=== PATIENT | male | born 1960 | race American Indian/Alaskan Native ===

== ENCOUNTER 2016-10-26 08:08 | Emergency (ER) | payer MEDICARE ==
[2016-10-26 08:44] VITALS: BP 133/84
--- NOTE | 2016-10-26 09:55 | Emergency Department Report ---
Upper Extremity - HPI Upper Extremity: Right Wrist Occurred When: 2 Days Mechanism: Hit with Object Severity: moderate Symptoms: Yes Pain with Movement, No Deformity, No Limited Range of Movement, No Numbness, No Weakness, No Swelling, No Bruising/Ecchymosis, No Laceration or Abrasion Other History: And is a 55-year-old male presents due to right wrist pain 2 days, patient states that he was at a restaurant trying to get paper towels from a paper towel dispenser when the dispenser fell and landed on his right wrist. Patient denies any numbness or tingling <MICHELL CHAVES N - Last Filed: 10/26/16 09:51> <IKMBERLI ALCANTAR - Last Filed: 10/26/16 14:22> - HPI Chief Complaint: Extremity Injury, Upper Stated Complaint: RT WRIST PAIN Time Seen by Provider: 10/26/16 09:49 ED Review of Systems ROS: Stated complaint: RT WRIST PAIN Other details as noted in HPI Comment: All other systems reviewed and negative Constitutional: no symptoms reported. denies: chills, diaphoresis, fever, malaise, weakness Respiratory: no symptoms reported Endocrine: no symptoms reported Gastrointestinal: denies: abdominal pain, nausea, vomiting Musculoskeletal: arthralgia (right wrist pain) Skin: denies: rash, lesions Neurological: denies: headache <MICHELL CHAVES - Last Filed: 10/26/16 09:51> ROS: Stated complaint: RT WRIST PAIN Other details as noted in HPI <KIMBERLI ALCANTAR - Last Filed: 10/26/16 14:22> ED Past Medical Hx - Past Medical History Hx Psychiatric Treatment: Yes (Paranoid schizophrenia) Additional medical history: OBESITY - Surgical History Additional Surgical History: Bilateral Cataract surgery @ the age of 14 - Social History Smoking Status: Current Some Day Smoker Substance Use Type: None <MICHELL CHAVES - Last Filed: 10/26/16 09:51> <KIMBERLI ALCANTAR - Last Filed: 10/26/16 14:22> - Medications Home Medications: Home Medications Medication Instructions Recorded Confirmed Last Taken Type Ibuprofen [Motrin 800 MG tab] 800 mg PO Q8HR PRN #30 tablet 10/26/16 Unknown Rx Upper Extremity Exam - Exam General: Vital signs noted. No distress. Alert and acting appropriately. Head and Torso: No HEENT Abnormality, No Neck Tenderness, No Chest/Lungs Abnormality, No Abdominal Tenderness, No Back Tenderness Shoulder Exam: Yes Normal Range of Motion in Shoulder, No Shoulder Tenderness, No Clavicle Tenderness, No Shoulder Deformity, No AC Joint Tenderness Arm Exam: No Arm/Humerus Tenderness, No Arm Deformity Elbow: Yes Normal Range of Motion in Elbow, No Elbow Tenderness, No Elbow Deformity Forearm: No Forearm Tenderness, No Forearm Deformity, No Pain with Pronation, No Pain with Supination Wrist: Yes Wrist Tenderness (right wrist), Yes Normal ROM in Wrist, No Wrist Deformity, No Snuffbox Tenderness, No Pain with Axial Thumb Compression Hand: Yes Normal ROM in Digit(s), No Hand Tenderness, No Hand Deformity, No Digit Tenderness, No Digit(s) Deformity, No Tendon Dysfunction CMS Exam: Yes Normal Distal Pulses, Yes Normal Capillary Refill, Yes Normal Distal Sensation, No Broken Skin <MICHELL CHAVES N - Last Filed: 10/26/16 09:51> - Exam General: Vital signs noted. No distress. Alert and acting appropriately. <KIMBERLI ALCANTAR C - Last Filed: 10/26/16 14:22> ED Course Vital Signs 10/26/16 08:42 Temperature 98.6 F Pulse Rate 80 Respiratory 17 Rate Blood Pressure 133/84 O2 Sat by Pulse 100 Oximetry <MICHELL CHAVES N - Last Filed: 10/26/16 09:51> Vital Signs 10/26/16 08:42 Temperature 98.6 F Pulse Rate 80 Respiratory 17 Rate Blood Pressure 133/84 O2 Sat by Pulse 100 Oximetry <KIMBERLI ALCANTAR C - Last Filed: 10/26/16 14:22> ED Medical Decision Making - Radiology Data Radiology results: pending, image reviewed interpreted by me: Chest x-ray of the right wrist shows no acute osseous findings, he was visible osteoarthritis. - Medical Decision Making Patient was in no acute distress, patient will be given a wrist brace. Patient will be given information follow-up with site acquisition specialist, hematochezia given prescription for ibuprofen. - Differential Diagnosis wrist strain, osteoarthritis, wrist trauma <MICHELL CHAVES N - Last Filed: 10/26/16 09:51> - Radiology Data Radiology results: report reviewed (wrist xray: unremarkable (no cxr performed)) , image reviewed <KIMBERLI ALCANTAR C - Last Filed: 10/26/16 14:22> Critical care attestation.: If time is entered above; I have spent that time in minutes in the direct care of this critically ill patient, excluding procedure time. <MICHELL CHAVES N - Last Filed: 10/26/16 09:51> Critical care attestation.: If time is entered above; I have spent that time in minutes in the direct care of this critically ill patient, excluding procedure time. <KIMBERLI ALCANTAR C - Last Filed: 10/26/16 14:22> ED Disposition Is pt being admited?: No Does the pt Need Aspirin: No Time of Disposition: 09:56 <MICHELL CHAVES N - Last Filed: 10/26/16 09:51> <KIMBERLI ALCANTAR C - Last Filed: 10/26/16 14:22> Disposition: DC-01 TO HOME OR SELFCARE Condition: Good Instructions: Wrist Injury (ED), Wrist Sprain (ED) Additional Instructions: Take ibuprofen 800 mg every 8 hours as needed for wrist pain. Follow-up with provided site acquisition specialist for any complications. Prescriptions: Ibuprofen [Motrin 800 MG tab] 800 mg PO Q8HR PRN #30 tablet PRN Reason: Pain Referrals: PRIMARY CARE,MD [Primary Care Provider] - 3-5 Days
--- NOTE | 2016-10-26 11:10 | XRay Report ---
RIGHT WRIST, 4 VIEWS: History: wrist pain, injury. Routine views demonstrate the carpal bones to be well mineralized with well preserved bony mineralization and interosseous joint spaces. The carpal and adjacent articular bones have normal contours. The surrounding soft tissues are unremarkable. IMPRESSION: Unremarkable right wrist.
== END 2016-10-26 10:13 | disposition home or self-care (01) ==
LOC: ED 08:08
DX: M25.531 Pain in right wrist (principal); W31.89XA Contact with other specified machinery, initial encounter; Y93.89 Activity, other specified; Y92.511 Restaurant or cafe as the place of occurrence of the external cause; Y99.8 Other external cause status; Z88.0 Allergy status to penicillin

== ENCOUNTER 2017-11-21 08:52 | Emergency (ER) | payer MEDICARE ==
[2017-11-21 09:04] VITALS: BP 145/87
--- NOTE | 2017-11-21 09:56 | Emergency Department Report ---
Chief Complaint: Pain General Stated Complaint: KNEE PAIN AND PHYSICAL Time Seen by Provider: 11/21/17 09:44 - HPI History of Present Illness: Patient is a 57-year-old [place] male who is complaining of fingernail fungus and bilateral hands. Patient also states he said 3 months of knee pain. Patient states the knee pain is 8 out of 10 severity is present daily. His constant pain hurts more when he is moving. He denies any injury. Patient also states it's been years disease had fingernail fungus and is coming here today requesting a physical. - ROS Review of Systems: All other systems reviewed are negative - Exam Vital Signs: Vital Signs 11/21/17 09:00 Temperature 98.8 F Pulse Rate 71 Respiratory 18 Rate Blood Pressure 145/87 O2 Sat by Pulse 99 Oximetry Physical Exam: Focused physical exam the patient's right knee shows full range of motion or no redness. Does have a small effusion present. Patient's does have onychomycosis on all fingers of bilateral hands. Heart and lungs are normal. MSE screening note: Focused history and physical exam performed. Due to findings the following was ordered: ED Medical Decision Making - Medical Decision Making Patient is a nominal emergency at this time. Patient will be referred to primary care for treatment of his chronic conditions. ED Disposition for MSE Clinical Impression: Onychomycosis Disposition: MED SCREENING EXAM-LEFT Is pt being admited?: No Does the pt Need Aspirin: No Condition: Stable Referrals: [facility] [Outside] - 3-5 Days
== END 2017-11-21 10:02 | disposition left against medical advice (07) ==
LOC: ED 08:52
DX: B35.2 Tinea manuum (principal); M25.561 Pain in right knee
CPT/HCPCS: 99282

== ENCOUNTER 2018-07-25 11:17 | Emergency (ER) | payer MEDICARE ==
--- NOTE | 2018-07-25 11:31 | Emergency Department Report ---
Blank Doc - Documentation Documentation: This is a 57-year-old male that presents with mid-lower back pain s/p fall. D enies any head or neck injures or pain. This initial assessment/diagnostic orders/clinical plan/treatment(s) is/are subject to change based on patient's health status, clinical progression and re-assessment by fellow clinical providers in the ED. Further treatment and workup at subsequent clinical providers discretion. Patient/guardians urged not to elope from the ED as their condition may be serious if not clinically assessed and managed. Initial orders include: 1- Patient sent to [facility] for further evaluation and treatment 2- Xray
[2018-07-25 11:33] VITALS: BP 150/96
--- NOTE | 2018-07-25 12:46 | Emergency Department Report ---
ED Back Pain/Injury HPI - General Chief Complaint: Back Pain/Injury Stated Complaint: BACK PAIN Time Seen by Provider: 07/25/18 11:30 Source: patient Limitations: No Limitations - History of Present Illness Initial Comments: Mr. Carolina is a 57 yo male who fell off a bench yesterday onto hard pavement. The bench was at the height of a chair. The bench broke which led to his fall. Pain is lower back central. Complaint: fall -: days(s) (1) Similar Symptoms Previously: No Place: other (dentist office) Severity: moderate Quality: dull Consistency: constant Worsens With: movement Context: fall - Related Data Previous Rx's Medication Instructions Recorded Last Taken Type Ibuprofen [Motrin 800 MG tab] 800 mg PO Q8HR PRN #30 tablet 10/26/16 Unknown Rx Cyclobenzaprine [Flexeril] 10 mg PO TID PRN #20 tablet 07/25/18 Unknown Rx Ibuprofen 800 mg PO TID 4 Days #12 tablet 07/25/18 Unknown Rx Allergies Allergy/AdvReac Type Severity Reaction Status Date / Time Penicillins Allergy Shortness Verified 10/26/16 08:40 of Breath ED Review of Systems ROS: Stated complaint: BACK PAIN Other details as noted in HPI Constitutional: denies: fever, malaise Respiratory: denies: cough, shortness of breath Cardiovascular: denies: chest pain Gastrointestinal: denies: abdominal pain Musculoskeletal: back pain Neurological: denies: numbness, paresthesias ED Past Medical Hx - Past Medical History Previous Medical History?: Yes Hx Psychiatric Treatment: Yes (Paranoid schizophrenia) Additional medical history: OBESITY, Loss of vision right eye - Surgical History Past Surgical History?: Yes Additional Surgical History: Bilateral Cataract surgery @ the age of 14 - Social History Smoking Status: Never Smoker Substance Use Type: None - Medications Home Medications: Home Medications Medication Instructions Recorded Confirmed Last Taken Type Ibuprofen [Motrin 800 MG tab] 800 mg PO Q8HR PRN #30 tablet 10/26/16 Unknown Rx Cyclobenzaprine [Flexeril] 10 mg PO TID PRN #20 tablet 07/25/18 Unknown Rx Ibuprofen 800 mg PO TID 4 Days #12 tablet 07/25/18 Unknown Rx ED Physical Exam - General Limitations: No Limitations General appearance: alert, in no apparent distress - Head Head exam: Present: atraumatic, normocephalic - Eye Eye exam: Present: normal appearance - ENT ENT exam: Present: mucous membranes moist - Neck Neck exam: Present: normal inspection - Respiratory Respiratory exam: Absent: respiratory distress - Extremities Exam Extremities exam: Present: normal inspection - Back Exam Back exam: Present: normal inspection, full ROM. Absent: tenderness, CVA tenderness (R), CVA tenderness (L), muscle spasm, paraspinal tenderness, vertebral tenderness, rash noted - Neurological Exam Neurological exam: Present: alert, oriented X3 - Psychiatric Psychiatric exam: Present: normal affect, normal mood - Skin Skin exam: Present: warm, dry, intact, normal color. Absent: rash ED Course Vital Signs 07/25/18 11:31 Temperature 98 F Pulse Rate 98 H Respiratory 18 Rate Blood Pressure 150/96 O2 Sat by Pulse 98 Oximetry ED Medical Decision Making - Medical Decision Making Back contusion, back sprain after falling through a broken bench. I reviewed thoracic and lumbar spine radiographs: Degenerative changes noted without fracture or subluxation. Prescribed ibuprofen and Flexeril Critical care attestation.: If time is entered above; I have spent that time in minutes in the direct care of this critically ill patient, excluding procedure time. ED Disposition Clinical Impression: Back contusion, Back strain Disposition: - TO HOME OR SELFCARE Is pt being admited?: No Does the pt Need Aspirin: No Condition: Stable Instructions: Low Back Strain (ED) Prescriptions: Cyclobenzaprine [Flexeril] 10 mg PO TID PRN #20 tablet PRN Reason: Muscle Spasm Ibuprofen 800 mg PO TID 4 Days #12 tablet Referrals: [facility] [Other] - 3-5 Days
--- NOTE | 2018-07-25 12:52 | XRay Report ---
Thoracic spine 3 views: History: Pain status post fall. Findings: Normal height of vertebral bodies. Decrease in height of intervertebral disc spaces. Sclerotic articular surfaces a peripheral osteophyte suggestive of degenerative changes. No fracture. No paravertebral mass. Impression: Degenerative dorsal spine. No evidence of acute fracture.
--- NOTE | 2018-07-25 12:53 | XRay Report ---
Lumbar spine 3 views: Next History: Pain status post fall. Findings: Normal height of vertebral bodies and intervertebral disc be a sclerotic articular surface a peripheral osteophyte at L4-5 disc. No fracture. No soft tissue calcification. Impression: Degenerative changes lower lumbar spine. No acute fracture.
== END 2018-07-25 12:52 | disposition home or self-care (01) ==
LOC: ED 11:17
DX: S39.012A Strain of muscle, fascia and tendon of lower back, initial encounter (principal); S30.0XXA Contusion of lower back and pelvis, initial encounter; F20.0 Paranoid schizophrenia; Z88.0 Allergy status to penicillin; W17.89XA Other fall from one level to another, initial encounter; Y93.89 Activity, other specified; Y92.89 Other specified places as the place of occurrence of the external cause; Y99.8 Other external cause status
CPT/HCPCS: 72070; 72100

== ENCOUNTER 2018-11-26 10:43 | Emergency (ER) | payer MEDICARE ==
[2018-11-26] MEDS ORDERED: TORADOL IM ONE (12:23)
--- NOTE | 2018-11-26 13:21 | Emergency Department Report ---
ED General Adult HPI - General Chief complaint: Nausea/Vomiting/Diarrhea Stated complaint: RT SIDE PAIN Time Seen by Provider: 11/26/18 11:38 Source: patient Mode of arrival: Ambulatory Limitations: No Limitations - History of Present Illness Initial comments: 28-year-old -[place] male presents to the emergency room for right sided rib pain 1.5 weeks. Patient denies any recent injury. He has intermittent nausea but denies any vomiting diarrhea or painful urination. Patient reports he is taking Tylenol which he reports only helps a little. Patient reports that the pain is worse with movement better with much Tylenol. Patient does not work has not been lifting any heavy objects. He does have a past medical history schizophrenia with paranoia. Currently takes trazodone and Seroquel Risperdal. Onset/Timin -: week(s) Location: right (ribs) Severity scale (0 -10): 5 Quality: aching, sharp Consistency: intermittent Improves with: medication Worsens with: movement (movements) Associated Symptoms: nausea/vomiting - Related Data Previous Rx's Medication Instructions Recorded Last Taken Type Cyclobenzaprine [Flexeril] 10 mg PO TID PRN #20 tablet 07/25/18 Unknown Rx Ibuprofen [Ibuprofen 800] 800 mg PO TID 4 Days #12 tablet 07/25/18 Unknown Rx Ibuprofen [Motrin 800 MG tab] 800 mg PO Q8HR PRN #30 tablet 11/26/18 Unknown Rx Allergies Allergy/AdvReac Type Severity Reaction Status Date / Time Penicillins Allergy Shortness Verified 10/26/16 08:40 of Breath ED Review of Systems ROS: Stated complaint: RT SIDE PAIN Other details as noted in HPI Comment: All other systems reviewed and negative ED Past Medical Hx - Past Medical History Previous Medical History?: Yes Hx Psychiatric Treatment: Yes (Paranoid schizophrenia) Additional medical history: OBESITY, Loss of vision right eye - Surgical History Past Surgical History?: Yes Additional Surgical History: Bilateral Cataract surgery @ the age of 14 - Social History Smoking Status: Never Smoker Substance Use Type: None - Medications Home Medications: Home Medications Medication Instructions Recorded Confirmed Last Taken Type Cyclobenzaprine [Flexeril] 10 mg PO TID PRN #20 tablet 07/25/18 Unknown Rx Ibuprofen [Ibuprofen 800] 800 mg PO TID 4 Days #12 tablet 07/25/18 Unknown Rx Ibuprofen [Motrin 800 MG tab] 800 mg PO Q8HR PRN #30 tablet 11/26/18 Unknown Rx ED Physical Exam - General Limitations: No Limitations General appearance: alert, in no apparent distress - Head Head exam: Present: atraumatic, normocephalic - Eye Eye exam: Present: normal appearance - ENT ENT exam: Present: mucous membranes moist - Neck Neck exam: Present: normal inspection - Respiratory Respiratory exam: Present: normal lung sounds bilaterally, chest wall tenderness (right lateral rib cage). Absent: respiratory distress - Cardiovascular Cardiovascular Exam: Present: regular rate, normal rhythm. Absent: systolic murmur, diastolic murmur, rubs, gallop - GI/Abdominal GI/Abdominal exam: Present: soft, normal bowel sounds - Rectal Rectal exam: Present: deferred - Extremities Exam Extremities exam: Present: normal inspection - Back Exam Back exam: Present: normal inspection - Neurological Exam Neurological exam: Present: alert, oriented X3 - Psychiatric Psychiatric exam: Present: normal affect, normal mood - Skin Skin exam: Present: warm, dry, intact, normal color. Absent: rash ED Course Vital Signs 11/26/18 11/26/18 11:00 12:29 Temperature 97.9 F Pulse Rate 101 H Respiratory 18 18 Rate Blood Pressure 139/76 O2 Sat by Pulse 100 Oximetry ED Medical Decision Making - Medical Decision Making 8-year-old obese male comes in for right lateral rib pain 1.5 weeks. Patient be given a Toradol injection of 30 mg IM. Which patient reports has helped and will discharge patient home and ibuprofen 800 mg 3 times a day as needed. Patient verbalizes understanding. Critical care attestation.: If time is entered above; I have spent that time in minutes in the direct care of this critically ill patient, excluding procedure time. ED Disposition Clinical Impression: Rib pain on right side Disposition: DC-01 TO HOME OR SELFCARE Is pt being admited?: No Does the pt Need Aspirin: No Condition: Stable Instructions: Chest Pain (ED) Additional Instructions: Please take ibuprofen as needed for pain. Increase her water intake. Please take medications with food. Prescriptions: Ibuprofen [Motrin 800 MG tab] 800 mg PO Q8HR PRN #30 tablet PRN Reason: Pain Referrals: JOBY GUERRA MD [Primary Care Provider] - 3-5 Days
[2018-11-26 13:40] VITALS: BP 140/80
== END 2018-11-26 13:39 | disposition home or self-care (01) ==
LOC: ED 10:43
DX: R07.81 Pleurodynia (principal); E66.9 Obesity, unspecified; Z68.41 Body mass index [BMI] 40.0-44.9, adult; F20.0 Paranoid schizophrenia; Z79.1 Long term (current) use of non-steroidal anti-inflammatories (NSAID); Z88.0 Allergy status to penicillin; Z98.890 Other specified postprocedural states
CPT/HCPCS: 96372; 99282; J1885

== ENCOUNTER 2020-12-23 10:38 | Emergency (ER) | payer MEDICARE ==
[2020-12-23 10:47] VITALS: BP 132/75
--- NOTE | 2020-12-23 11:24 | Emergency Department Report ---
ED Lower Extremity HPI - General Chief Complaint: Extremity Injury, Lower Stated Complaint: POSS FX Time Seen by Provider: 12/23/20 11:17 Source: patient Mode of arrival: Ambulatory Limitations: No Limitations - History of Present Illness Initial Comments: 60-year-old male with past medical history of paranoid schizophrenia and bipolar presents to the ER today with complaints of right ankle and right heel pain. Patient states that he injured his right ankle and right heel about 3 weeks ago while he was "horse playing". He believes that he may have twisted his ankle and foot. He reports pain with ambulation and swelling. He denies any prior surgeries to his ankle or his foot or any prior fractures or any other injuries to his ankle and foot in the past. He states he has been taking Tylenol without much relief. MD Complaint: ankle injury, foot injury -: week(s) (3) - Related Data Previous Rx's Medication Instructions Recorded Last Taken Type Cyclobenzaprine [Flexeril] 10 mg PO TID PRN #20 tablet 07/25/18 Unknown Rx Ibuprofen [Ibuprofen 800] 800 mg PO TID 4 Days #12 tablet 07/25/18 Unknown Rx Ibuprofen [Motrin 800 MG tab] 800 mg PO Q8HR PRN #30 tablet 12/23/20 Unknown Rx Allergies Allergy/AdvReac Type Severity Reaction Status Date / Time Penicillins Allergy Shortness Verified 12/23/20 10:43 of Breath ED Review of Systems ROS: Stated complaint: POSS FX Other details as noted in HPI Comment: All other systems reviewed and negative Constitutional: denies: chills, fever Eyes: denies: eye pain, eye discharge, vision change ENT: denies: ear pain, throat pain, dental pain, hearing loss, congestion Respiratory: denies: cough, shortness of breath, SOB with exertion, SOB at rest, wheezing Cardiovascular: denies: chest pain, palpitations, dyspnea on exertion, edema, syncope, paroxysmal nocturnal dyspnea Gastrointestinal: denies: abdominal pain, nausea, vomiting, diarrhea, constipation, hematemesis, hematochezia Genitourinary: denies: urgency, dysuria, frequency, hematuria, discharge, testicular pain, testicular mass Musculoskeletal: joint swelling, arthralgia Skin: denies: rash, lesions, change in color, change in hair/nails, pruritus Neurological: denies: headache, weakness, paresthesias Psychiatric: denies: anxiety, depression, auditory hallucinations, visual hallucinations, homicidal thoughts, suicidal thoughts Hematological/Lymphatic: denies: easy bleeding, easy bruising, swollen glands ED Past Medical Hx - Past Medical History Hx Psychiatric Treatment: Yes (Paranoid schizophrenia) Additional medical history: OBESITY, Loss of vision right eye - Surgical History Additional Surgical History: Bilateral Cataract surgery @ the age of 14 - Social History Smoking Status: Never Smoker - Medications Home Medications: Home Medications Medication Instructions Recorded Confirmed Last Taken Type Cyclobenzaprine [Flexeril] 10 mg PO TID PRN #20 tablet 07/25/18 Unknown Rx Ibuprofen [Ibuprofen 800] 800 mg PO TID 4 Days #12 tablet 07/25/18 Unknown Rx Ibuprofen [Motrin 800 MG tab] 800 mg PO Q8HR PRN #30 tablet 12/23/20 Unknown Rx ED Physical Exam - General Limitations: No Limitations General appearance: alert, in no apparent distress - Head Head exam: Present: atraumatic, normocephalic, normal inspection - Eye Eye exam: Present: normal appearance, PERRL, EOMI Pupils: Present: normal accommodation - Neck Neck exam: Present: normal inspection, full ROM - Respiratory Respiratory exam: Absent: respiratory distress - Cardiovascular Cardiovascular Exam: Present: regular rate - Expanded Lower Extremity Exam Right Ankle exam: Present: normal inspection, full ROM (but there is mild pain on rom ), tenderness (lateral aspect of right ankle ). Absent: swelling, abrasion, laceration, ecchymosis, deformity, crepidus, dislocation, erythema Foot/Toe exam: Present: full ROM, tenderness (heal). Absent: swelling, abrasion, dislocation, erythema, amputation, puncture wound, foreign body Neuro vascular tendon exam: Present: no vascular compromise. Absent: abnormal cap refill Gait: Positive: observed and normal - Neurological Exam Neurological exam: Present: alert, oriented X3, CN II-XII intact, normal gait - Psychiatric Psychiatric exam: Present: normal affect, normal mood ED Course Vital Signs 12/23/20 10:45 Temperature 98.5 F Pulse Rate 69 Respiratory 18 Rate Blood Pressure 132/75 O2 Sat by Pulse 98 Oximetry ED Lower Extremity MDM - Radiology Data Radiology results: report reviewed Patient: EFRAIN CAPONE MR#: [id number] 75 : 1960 Acct:[id number] Age/Sex: 60 / M ADM Date: 12/23/20 Loc: ED Attending Dr: Ordering Physician: LELIA HARRIS Date of Service: 12/23/20 Procedure(s): XR foot 3+V RT Accession Number(s): [id number] cc: LELIA HARRIS Fluoro Time In Minutes: RIGHT FOOT 3 VIEW(S) INDICATION / CLINICAL INFORMATION: twisting injury/pain COMPARISON: None available. FINDINGS: BONES / JOINT(S): No acute fracture or subluxation. Mild degenerative change of the first MTP and interphalangeal joint. SOFT TISSUES: No significant abnormality. ADDITIONAL FINDINGS: Mild plantar and Achilles insertional enthesopathy of the calcaneus. Signer Name: Osbaldo Gifford MD Signed: 12/23/2020 11:45 AM Workstation Name: [email or web address] Transcribed By: SB Dictated By: OSBALDO GIFFORD MD Electronically Authenticated By: OSBALDO GIFFORD MD Signed Date/Time: 12/23/20 114 DD/ 1143 Patient: EFRAIN CAPONE MR#: [id number] : 1960 Acct:[id number] Age/Sex: 60 / M ADM Date: 12/23/20 Loc: ED Attending Dr: Ordering Physician: LELIA HARRIS Date of Service: 12/23/20 Procedure(s): XR ankle 3+V RT Accession Number(s): [id number] cc: LELIA HARRIS Fluoro Time In Minutes: RIGHT ANKLE 3 VIEW(S) INDICATION / CLINICAL INFORMATION: ANkle pain/twisting injury COMPARISON: None available. FINDINGS: BONES / JOINT(S): No acute fracture or subluxation. Moderate polyarticular degenerative changes SOFT TISSUES: Mild soft tissue swelling about the ankle joint. ADDITIONAL FINDINGS: Achilles and plantar enthesopathy of the calcaneus. Signer Name: Osbaldo Gifford MD Signed: 12/23/2020 11:47 AM Workstation Name: [email or web address] Transcribed By: SB Dictated By: OSBALDO GIFFORD MD Electronically Authenticated By: OSBALDO GIFFORD MD Signed Date/Time: 12/23/20 1147 DD/ 1145 TD/TT: Critical care attestation.: If time is entered above; I have spent that time in minutes in the direct care of this critically ill patient, excluding procedure time. ED Disposition Clinical Impression: Ankle sprain, Heel pain, Sprain of foot, right Disposition: - TO HOME OR SELFCARE Is pt being admited?: No Does the pt Need Aspirin: No Condition: Stable Instructions: Ankle Sprain, Foot Sprain Additional Instructions: I recommend that you take ibuprofen as prescribed. Elevate leg as often as possible. Follow up with ankle and senior tax specialist listed on discharge on instructions. Return to ED if worse. Prescriptions: Ibuprofen [Motrin 800 MG tab] 800 mg PO Q8HR PRN #30 tablet PRN Reason: Pain Referrals: KIRIT OILVIER DPM [Staff Physician] - 7-10 days Time of Disposition: 12:09
--- NOTE | 2020-12-23 11:52 | XRay Report ---
RIGHT FOOT 3 VIEW(S) INDICATION / CLINICAL INFORMATION: twisting injury/pain COMPARISON: None available. FINDINGS: BONES / JOINT(S): No acute fracture or subluxation. Mild degenerative change of the first MTP and int erphalangeal joint. SOFT TISSUES: No significant abnormality. ADDITIONAL FINDINGS: Mild plantar and Achilles insertional enthesopathy of the calcaneus. Signer Name: Osbaldo Gifford MD Signed: 12/23/2020 11:45 AM Workstation Name: [email or web address]
--- NOTE | 2020-12-23 11:52 | XRay Report ---
RIGHT ANKLE 3 VIEW(S) INDICATION / CLINICAL INFORMATION: ANkle pain/twisting injury COMPARISON: None available. FINDINGS: BONES / JOINT(S): No acute fracture or subluxation. Moderate polyarticular degenerative changes SOFT TISSUES: Mild soft tissue swelling about the ankle joint. ADDITIONAL FINDINGS: Achilles and plantar enthesopathy of the calcaneus. Signer Name: Osbaldo Gifford MD Signed: 12/23/2020 11:47 AM Workstation Name: [email or web address]
== END 2020-12-23 12:09 | disposition home or self-care (01) ==
LOC: ED 10:38
DX: S93.491A Sprain of other ligament of right ankle, initial encounter (principal); F20.9 Schizophrenia, unspecified; F31.9 Bipolar disorder, unspecified; Z98.890 Other specified postprocedural states; X58.XXXA Exposure to other specified factors, initial encounter; Y93.89 Activity, other specified; Y92.89 Other specified places as the place of occurrence of the external cause; Y99.8 Other external cause status
CPT/HCPCS: 99283